=== PATIENT | male | born 1960 | race Two or more races ===

== ENCOUNTER 2022-08-18 16:11 | Inpatient (IN) | payer OTHER ==
[~2022-08-18] VITALS: Ht 172.7 cm; Wt 86.4 kg
[2022-08-18] MEDS ORDERED: SODIUM CHLORIDE 0.9% 1,000 ML IV ONE (17:15)
[2022-08-18] MEDS ORDERED: MAGNESIUM HYDROXIDE SUSPENSION 30 ML UDCUP PO PRN (17:15)
[2022-08-18 17:30] LABS: BASOPHILS % (AUTO) 0.4 % (0.0-2.0); COVID AG,FIA SOURCE NASOPHARYNGEAL; EOSINOPHILS % (AUTO) 0.1 % (1.0-6.0); HEMATOCRIT 41.9 % (41-53); LYMPHOCYTES # (AUTO) 1.7 K/uL (1.0-4.8); LYMPHOCYTES % (AUTO) 17.3 % (22.0-44.0); MEAN CORPUSCULAR HEMOGLOBIN 29.4 pg (26.0-34.0); MEAN CORPUSCULAR HGB CONC 33.5 G/dL (31.0-37.0); MEAN CORPUSCULAR VOLUME 88 fL (80-100); MONOCYTES # (AUTO) 0.4 K/uL (0.1-1.0); MONOCYTES % (AUTO) 4.1 % (2.0-9.0); NEUTROPHILS # (AUTO) 7.6 K/uL (1.8-7.7); NEUTROPHILS % (AUTO) 78.1 % (40.0-70.0); PLATELET COUNT (AUTO) 264 K/uL (150-450); RED BLOOD CELL COUNT(AUTO) 4.76 MIL/uL (4.50-5.90); RED CELL DISTRIBUTION WIDTH 12.9 % (11.5-14.5)
[2022-08-18 17:42] LABS: ANION GAP 10 mmol/L (8-16); CARBON DIOXIDE 26 mmol/L (22-29); CHLORIDE 101 mmol/L (98-107); CREATININE 0.71 mg/dL (0.60-1.30); GLOMERULAR FILTR. RATE CALC > 60 mL/min (>60); GLUCOSE,RANDOM 102 mg/dL (70-110); POTASSIUM 3.8 mmol/L (3.5-5.1); SODIUM SERUM 137 mmol/L (136-145); UREA NITROGEN, BLOOD 13 mg/dL (7-18)
[2022-08-18 17:48] LABS: ALANINE AMINOTRANSFERASE 39 U/L (12-78); ALBUMIN 4.2 g/dL (3.4-5.0); ALKALINE PHOSPHATASE 73 U/L (46-116); ASPARTATE AMINOTRANSFERASE 26 U/L (15-37); BILIRUBIN,TOTAL 0.7 mg/dL (0.1-1.0); TOTAL PROTEIN, SERUM 8.4 g/dL (6.4-8.2)
[2022-08-18 20:21] LABS: AMPHET/METH SCREEN,URINE POSITIVE (NEGATIVE); BARBITURATE SCREEN, URINE NEGATIVE (NEGATIVE); BENZODIAZEPINES SCREEN,URINE NEGATIVE (NEGATIVE); CANNABINOID SCREEN,URINE NEGATIVE (NEGATIVE); COCAINE SCREEN,URINE NEGATIVE (NEGATIVE); METHADONE SCREEN, URINE NEGATIVE (NEGATIVE); OPIATE SCREEN,URINE NEGATIVE (NEGATIVE); PHENCYCLIDINE SCREEN,URINE NEGATIVE (NEGATIVE)
[2022-08-18 20:32] LABS: APPEARANCE,URINE CLEAR (CLEAR); BILIRUBIN,URINE NEGATIVE (NEGATIVE); GLUCOSE, URINE (UA) NEGATIVE (NEGATIVE); LEUKOCYTE ESTERASE ,URINE NEGATIVE (NEGATIVE); NITRATE,URINE NEGATIVE (NEGATIVE); OCCULT BLOOD,URINE NEGATIVE (NEGATIVE); PH,URINE 7.5 (5.0-8.0); PROTEIN,URINE NEGATIVE (NEGATIVE); SPECIFIC GRAVITIY, URINE 1.015 (1.003-1.030); UROBILINOGEN,URINE <=1.0 mg/dL (<=1.0)
[2022-08-18] MEDS: ACETAMINOPHEN 325 MG TABLET PO PRN (20:34)
[2022-08-18] MEDS: ZOLPIDEM TARTRATE 5 MG TABLET PO PRN (20:34)
[2022-08-18] MEDS: LORazepam 2 MG/ML VIAL IVP PRN (20:36)
[2022-08-18 20:42] VITALS: BP 138/90
[2022-08-18 20:46] LABS: BACTERIA,URINE None Seen /HPF (None Seen); RBC,URINE None Seen /HPF (0-2); SQUAMOUS EPITHELIAL CELL,UR Few /LPF (None Seen); WBC,URINE 0-2 /HPF (0-5)
[2022-08-18] MEDS: HEPARIN SODIUM,PORCINE 5,000 UNITS/ML VIAL SQ SCH (23:01)
[2022-08-19] MEDS: LORazepam 2 MG/ML VIAL IVP PRN ×3 (02:59→20:21)
[2022-08-19] MEDS: ACETAMINOPHEN 325 MG TABLET PO PRN ×3 (03:00→10:44)
[2022-08-19] MEDS: ONDANSETRON HCL 4 MG/2 ML VIAL IVP PRN (03:03)
[2022-08-19 04:12] VITALS: BP 139/98
[2022-08-19] MEDS: HEPARIN SODIUM,PORCINE 5,000 UNITS/ML VIAL SQ SCH ×3 (08:42→22:49)
[2022-08-19] MEDS: FAMOTIDINE 20 MG TABLET PO SCH (08:42)
[2022-08-19 09:17] VITALS: BP 134/92
[2022-08-19 12:37] VITALS: BP 138/89
[2022-08-19] MEDS: TraMADol HCL 50 MG TABLET PO PRN ×2 (16:07→22:49)
[2022-08-19 16:37] VITALS: BP 130/84
[2022-08-19 20:33] VITALS: BP 132/87
[2022-08-19] MEDS: ZOLPIDEM TARTRATE 5 MG TABLET PO PRN (22:49)
[2022-08-20] MEDS: LORazepam 2 MG/ML VIAL IVP PRN ×4 (02:50→20:30)
[2022-08-20 05:08] VITALS: BP 148/88
[2022-08-20] MEDS: TraMADol HCL 50 MG TABLET PO PRN ×3 (07:17→22:34)
[2022-08-20] MEDS: HEPARIN SODIUM,PORCINE 5,000 UNITS/ML VIAL SQ SCH ×3 (08:47→22:34)
[2022-08-20] MEDS: FAMOTIDINE 20 MG TABLET PO SCH (08:47)
[2022-08-20] MEDS: ONDANSETRON HCL 4 MG/2 ML VIAL IVP PRN ×2 (08:48→14:40)
[2022-08-20] MEDS ORDERED: SODIUM CHLORIDE 0.9% 1,000 ML IV ONE (10:00)
[2022-08-20 10:02] VITALS: BP 147/77
[2022-08-20 12:11] LABS: ANION GAP 13 mmol/L (8-16); CALCIUM, TOTAL 9.1 mg/dL (8.8-10.5); CARBON DIOXIDE 24 mmol/L (22-29); CHLORIDE 95 mmol/L (98-107); CREATININE 0.81 mg/dL (0.60-1.30); GLOMERULAR FILTR. RATE CALC > 60 mL/min (>60); GLUCOSE,RANDOM 107 mg/dL (70-110); POTASSIUM 3.6 mmol/L (3.5-5.1); SODIUM SERUM 132 mmol/L (136-145); UREA NITROGEN, BLOOD 16 mg/dL (7-18)
[2022-08-20] MEDS: CloNIDine HCL 0.1 MG TABLET PO PRN (17:32)
[2022-08-20 19:00] VITALS: BP 137/89
[2022-08-20] MEDS: ZOLPIDEM TARTRATE 5 MG TABLET PO PRN (22:34)
[2022-08-21] MEDS: LORazepam 2 MG/ML VIAL IVP PRN ×2 (06:21→16:46)
[2022-08-21 08:00] VITALS: BP 144/90
[2022-08-21] MEDS ORDERED: POTASSIUM CHLORIDE 10 MEQ ER TABLET PO ONE (08:15)
[2022-08-21] MEDS: HEPARIN SODIUM,PORCINE 5,000 UNITS/ML VIAL SQ SCH ×3 (08:46→23:41)
[2022-08-21] MEDS: FAMOTIDINE 20 MG TABLET PO SCH (08:46)
[2022-08-21] MEDS: TraMADol HCL 50 MG TABLET PO PRN (13:04)
[2022-08-21 16:00] VITALS: BP 148/95
[2022-08-21 20:06] VITALS: BP 147/104
[2022-08-21] MEDS: ZOLPIDEM TARTRATE 5 MG TABLET PO PRN (20:14)
[2022-08-22] MEDS: TraMADol HCL 50 MG TABLET PO PRN ×2 (00:28→20:19)
[2022-08-22] MEDS: LORazepam 2 MG/ML VIAL IVP PRN (00:29)
[2022-08-22] MEDS: ACETAMINOPHEN 325 MG TABLET PO PRN ×2 (04:18→11:51)
[2022-08-22 04:20] VITALS: BP 141/93
[2022-08-22] MEDS: FAMOTIDINE 20 MG TABLET PO SCH (08:32)
[2022-08-22] MEDS: HEPARIN SODIUM,PORCINE 5,000 UNITS/ML VIAL SQ SCH ×3 (08:32→23:49)
[2022-08-22 09:07] VITALS: BP 137/69
[2022-08-22] MEDS ORDERED: LORazepam 2 MG/ML VIAL IVP PRN (10:00)
[2022-08-22 16:44] VITALS: BP 132/80
[2022-08-22 20:07] VITALS: BP 136/111
[2022-08-22] MEDS: ZOLPIDEM TARTRATE 10 MG TABLET PO PRN (20:19)
[2022-08-23 04:38] VITALS: BP 163/97
[2022-08-23] MEDS: CloNIDine HCL 0.1 MG TABLET PO PRN (04:43)
[2022-08-23 08:34] LABS: ALANINE AMINOTRANSFERASE 69 U/L (12-78); ALBUMIN 3.8 g/dL (3.4-5.0); ALKALINE PHOSPHATASE 66 U/L (46-116); ANION GAP 8 mmol/L (8-16); ASPARTATE AMINOTRANSFERASE 43 U/L (15-37); BILIRUBIN,TOTAL 0.8 mg/dL (0.1-1.0); CALCIUM, TOTAL 8.9 mg/dL (8.8-10.5); CARBON DIOXIDE 28 mmol/L (22-29); CHLORIDE 95 mmol/L (98-107); CREATININE 0.68 mg/dL (0.60-1.30); GLOMERULAR FILTR. RATE CALC > 60 mL/min (>60); GLUCOSE,RANDOM 122 mg/dL (70-110); SODIUM SERUM 131 mmol/L (136-145); TOTAL PROTEIN, SERUM 7.4 g/dL (6.4-8.2); UREA NITROGEN, BLOOD 13 mg/dL (7-18)
[2022-08-23 08:49] VITALS: BP 129/86
[2022-08-23] MEDS: THIAMINE 100 MG TABLET PO SCH (09:06)
[2022-08-23] MEDS: HEPARIN SODIUM,PORCINE 5,000 UNITS/ML VIAL SQ SCH ×3 (09:06→23:35)
[2022-08-23] MEDS: FAMOTIDINE 20 MG TABLET PO SCH (09:06)
[2022-08-23] MEDS ORDERED: POTASSIUM CHLORIDE 20 MEQ ER TABLET PO ONE (09:45)
[2022-08-23] MEDS: ONDANSETRON HCL 4 MG/2 ML VIAL IVP PRN ×2 (10:14→18:09)
[2022-08-23] MEDS: ACETAMINOPHEN 325 MG TABLET PO PRN ×3 (10:15→22:16)
[2022-08-23 17:14] VITALS: BP 124/71
[2022-08-23 20:42] VITALS: BP 143/98
[2022-08-23] MEDS: ZOLPIDEM TARTRATE 10 MG TABLET PO PRN (22:15)
[2022-08-24] MEDS: TraMADol HCL 50 MG TABLET PO PRN (04:14)
[2022-08-24 05:11] VITALS: BP 107/69
[2022-08-24] MEDS ORDERED: FAMO20 PO (08:03)
[2022-08-24] MEDS ORDERED: HEPA500018 SQ (08:04)
[2022-08-24] MEDS ORDERED: THIA100T80 PO (08:04)
[2022-08-24] MEDS ORDERED: ACET650S14 PR (08:05)
[2022-08-24] MEDS ORDERED: MAGN-169 PO (08:08)
[2022-08-24] MEDS ORDERED: CLON-441 PO (08:08)
[2022-08-24] MEDS ORDERED: TRAM-559 PO (08:09)
[2022-08-24] MEDS ORDERED: ONDA-104 PO (08:09)
[2022-08-24] MEDS ORDERED: ZOLP10TA8 PO (08:11)
[2022-08-24] MEDS: FAMOTIDINE 20 MG TABLET PO SCH (08:21)
[2022-08-24] MEDS: HEPARIN SODIUM,PORCINE 5,000 UNITS/ML VIAL SQ SCH ×2 (08:21→15:41)
[2022-08-24] MEDS: THIAMINE 100 MG TABLET PO SCH (08:21)
[2022-08-24 12:45] VITALS: BP 154/95
[2022-08-24] MEDS: ACETAMINOPHEN 325 MG TABLET PO PRN (13:38)
== END 2022-08-24 17:40 | DRG 897 ==
LOC: EMS 16:18 → AHU 17:29 → 6S 20:14
PROVIDERS: ADMIT Internal Medicine; ATTEND Internal Medicine
DX: F11.23 Opioid dependence with withdrawal (principal); Z20.822 Contact with and (suspected) exposure to COVID-19; E87.6 Hypokalemia; F17.200 Nicotine dependence, unspecified, uncomplicated; I10 Essential (primary) hypertension; Z76.5 Malingerer [conscious simulation]
CPT/HCPCS: 80048; 80053; 80307; 81001; 84132; 85025; 99285; G0480; J1644; J2060; J2405; J7030